=== PATIENT | female | born 1995 | race Caucasian/White ===

== ENCOUNTER 2019-05-04 21:02 | Emergency (ER) | payer OTHER ==
[2019-05-04] MEDS ORDERED: NORMAL SALINE 1000 ML 1,000 ML IV ONE ×2 (21:26→23:42)
[2019-05-04] MEDS ORDERED: ONDANSETRON HCL INJ/PF 4 MG/2 ML SDV IV ONE (21:26)
[2019-05-04] MEDS ORDERED: ACETAMINOPHEN 325 MG TABLET PO ONE (21:27)
[2019-05-04] MEDS ORDERED: KETOROLAC TROMETHAMINE INJ/PF 30 MG/1 ML SDV IV ONE (21:27)
--- NOTE | 2019-05-04 21:28 | ER Document Report ---
ED Medical Screen (RME) - General Chief Complaint: Flu Symptoms Stated Complaint: FEVER/CHILLS/SORE THROAT/NAUSEA Time Seen by Provider: 05/04/19 21:21 Primary Care Provider: COREY NIXON MD [Primary Care Provider] - Follow up as needed TRAVEL OUTSIDE OF THE [place] IN LAST 30 DAYS: No - HPI Notes: 05/04/19 21:27 23-year-old female to the emergency department with complaints of progressively worsening headache, body aches, dizziness, feeling like she is got pass out, fevers that began today. She states that yesterday she got a Gardasil injection and also was put on Fioricet for her hormonal migraines. She states that this morning she was feeling poorly but as the day progressed she got worse. She does admit to a cough. She denies any vomiting but does endorse nausea. She denies any diarrhea. She states that she got home and changed from work and came directly here. She is not taken any Tylenol or Motrin for her symptoms. I performed a brief medical screening exam on the patient determined that the patient needs further evaluation and management by main side provider. I have placed initial orders to help expedite care. - Related Data Allergies/Adverse Reactions: No Known Allergies Allergy (Unverified 03/04/14 11:08) Past Medical History Pulmonary Medical History: Reports: Hx Asthma - Immunizations Hx Diphtheria, Pertussis, Tetanus Vaccination: Yes Physical Exam - Vital signs Vitals: Temp Pulse Resp BP Pulse Ox 102.9 F H 132 H 22 H 132/82 H 100 05/04/19 21:15 05/04/19 21:15 05/04/19 21:15 05/04/19 21:15 05/04/19 21:15 Course - Vital Signs Vital signs: Temp Pulse Resp BP Pulse Ox 102.9 F H 132 H 22 H 132/82 H 100 05/04/19 21:15 05/04/19 21:15 05/04/19 21:15 05/04/19 21:15 05/04/19 21:15 Doctor's Discharge - Discharge Referrals: COREY NIXON MD [Primary Care Provider] - Follow up as needed
[2019-05-04] MEDS ORDERED: KETOROLAC TROMETHAMINE INJ/PF 30 MG/1 ML SDV ONE (22:32)
[2019-05-04] MEDS ORDERED: ONDANSETRON HCL INJ/PF 4 MG/2 ML SDV ONE (22:32)
[2019-05-04] MEDS ORDERED: ACETAMINOPHEN 325 MG TABLET ONE (22:33)
[2019-05-04 23:03] LABS: ABSOLUTE LYMPHOCYTES (AUTO) 0.6 10^3/uL (0.5-4.7); ABSOLUTE MONOCYTES (AUTO) 0.8 10^3/uL (0.1-1.4); ABSOLUTE NEUT (AUTO) 8.4 10^3/uL (1.7-8.2); BASOPHILS % (AUTO) 0.4 % (0-2); HEMATOCRIT 40.7 % (36.0-47.0); HEMOGLOBIN 14.2 g/dL (12.0-15.5); MEAN CORPUSCULAR HGB CONC 34.9 g/dL (32.0-36.0); MEAN CORPUSCULAR VOLUME 89 fl (80-97); MONOCYTES % (AUTO) 8.1 % (3-13); PLATELET COUNT 351 10^3/uL (150-450); RED BLOOD COUNT 4.58 10^6/uL (3.72-5.28); RED CELL DISTRIBUTION WIDTH 13.6 % (11.5-14.0); SEGMENTED NEUTROPHILS % (AUTO) 85.5 % (42-78); TOTAL CELLS COUNTED % (AUTO) 100 %; WHITE BLOOD COUNT 9.8 10^3/uL (4.0-10.5)
[2019-05-04 23:17] LABS: A TYPE INFLUENZA AG POSITIVE (NEGATIVE); B INFLUENZA AG NEGATIVE (NEGATIVE)
[2019-05-04 23:21] LABS: ALBUMIN 4.9 g/dL (3.5-5.0); ALKALINE PHOSPHATASE 50 U/L (38-126); ANION GAP 13 (5-19); ASPARTATE AMINO TRANSFERASE 27 U/L (14-36); BILIRUBIN,DIRECT 0.3 mg/dL (0.0-0.4); BILIRUBIN,TOTAL 0.4 mg/dL (0.2-1.3); BLOOD UREA NITROGEN 17 mg/dL (7-20); CALCIUM 9.8 mg/dL (8.4-10.2); CARBON DIOXIDE 24 mmol/L (22-30); CHLORIDE 101 mmol/L (98-107); GLUCOSE 93 mg/dL (75-110); POTASSIUM 4.6 mmol/L (3.6-5.0); TOTAL PROTEIN 8.5 g/dL (6.3-8.2)
[2019-05-04] MEDS ORDERED: OSELTAMIVIR PHOSPHATE 75 MG CAPSULE PO ONE (23:42)
--- NOTE | 2019-05-04 23:48 | ER Document Report ---
ED Flu Like - General Chief Complaint: Flu Symptoms Stated Complaint: FEVER/CHILLS/SORE THROAT/NAUSEA Time Seen by Provider: 05/04/19 21:21 Primary Care Provider: COREY NIXON MD [Primary Care Provider] - Follow up as needed Mode of Arrival: Ambulatory Information source: Patient, Parent TRAVEL OUTSIDE OF THE [place] IN LAST 30 DAYS: No - HPI Onset: This afternoon Timing/Duration: Sudden Quality of pain: Achy Severity: Moderate Associated symptoms: Body/muscle aches, Chills, Fever, Headache, Nausea, Weakness Notes: No flu immunization this season - Related Data Allergies/Adverse Reactions: No Known Allergies Allergy (Unverified 03/04/14 11:08) Past Medical History - General Information source: Patient, Parent - Social History Smoking Status: Never Smoker Family History: Reviewed & Not Pertinent Patient has suicidal ideation: No Patient has homicidal ideation: No Pulmonary Medical History: Reports: Hx Asthma Neurological Medical History: Reports: Other - Past history of Moore's palsy - Immunizations Hx Diphtheria, Pertussis, Tetanus Vaccination: Yes Review of Systems - Review of Systems Notes: Constitutional: As per HPI. HENT: As per HPI. Eyes: Eyes burn. Cardiovascular: Negative for chest pain. Respiratory: Nonproductive cough. Gastrointestinal: Nausea. No diarrhea.. Genitourinary: Negative for dysuria. Musculoskeletal: Diffuse musculoskeletal pain. Skin: Negative for rash. Neurological: Dull headache. 10 point ROS negative except as marked above and in HPI. Physical Exam - Vital signs Vitals: Temp Pulse Resp BP Pulse Ox 102.9 F H 132 H 22 H 132/82 H 100 05/04/19 21:15 05/04/19 21:15 05/04/19 21:15 05/04/19 21:15 05/04/19 21:15 - Notes Notes: GENERAL: Mildly obese female approximately stated age who appears flushed ill and uncomfortable. SKIN: Good turgor. Flushed. HEAD: Normocephalic atraumatic. EYES: PERRLA. EOMI. Conjunctivae bilaterally injected. EARS: CANALS AND TMS CLEAR. NOSE: CLEAR. MOUTH: Moist mucosa. Good dentition. No stridor or edema. No drooling. Throat: Injected without exudate. NECK: Supple. No masses or thyromegaly. No adenopathy. Carotids 2+ without bruits. No JVD. BACK: Symmetrical without tenderness. CHEST: Dry cough. Respirations unlabored. Breath sounds clear and symmetrical. HEART: Regular rhythm. No murmur gallop or rub. ABDOMEN: Soft nontender without masses, organomegaly or rebound. Bowel sounds normally active. No bruits. GENITALIA: Deferred. EXTREMITIES: No edema. No calf tenderness. Cap refill less than 1.5 seconds. Dorsalis pedis and posterior tibial pulses 3+ and symmetrical. NEUROLOGICAL: GCS 15. Alert and oriented x3. Normal gait. Fluent speech. Cranial nerves II through XII intact. Sensorimotor and cerebellar normal. Normal tone. PSYCHIATRIC: Appropriate affect. Course - Re-evaluation Re-evalutation: 05/04/19 23:47 Positive rapid screen for influenza A. Patient is given oral Tamiflu. Markedly improved after IV normal saline, Toradol and IV Zofran. Stable for outpatient management. - Vital Signs Vital signs: Temp Pulse Resp BP Pulse Ox 102.9 F H 132 H 22 H 132/82 H 100 05/04/19 21:15 05/04/19 21:15 05/04/19 21:15 05/04/19 21:15 05/04/19 21:15 - Laboratory Result Diagrams: 05/04/19 22:40 05/04/19 22:40 Laboratory results interpreted by me: 05/04/19 05/04/19 22:40 22:40 Lymph % (Auto) 6.0 L Absolute Neuts (auto) 8.4 H Seg Neutrophils % 85.5 H Total Protein 8.5 H Discharge - Discharge Clinical Impression: Influenza A Condition: Stable Disposition: HOME, SELF-CARE Instructions: Acetaminophen, Influenza ([phone]) [id number] Additional Instructions: Increase oral fluids. Tylenol or Motrin [id number] as needed. Take prescribed medication as directed. You will be provided a work note for the next 3 days. Follow-up with your primary care provider if unimproved within the next 3 to 4 days. Return here as needed for new or worsening symptoms: Pain that is worsening or unimproved Uncontrolled vomiting High fever or shaking chills Overall worsening Prescriptions: Oseltamivir Phosphate [Tamiflu 75 mg Capsule] 75 mg PO BID 5 Days #10 capsule Forms: Return to Work Referrals: NIXON,SWETANG, MD [Primary Care Provider] - Follow up as needed
[2019-05-05] MEDS ORDERED: ONDANSETRON ODT 4 MG TAB (6 TAB/ER DISP) PO PRN (00:04)
[2019-05-05 00:53] VITALS: BP 106/50
== END 2019-05-05 00:51 | disposition home or self-care (01) ==
LOC: ER 21:02
DX: J10.1 Influenza due to other identified influenza virus with other respiratory manifestations (principal); R50.9 Fever, unspecified; R51 Headache; R11.0 Nausea; R53.1 Weakness; M79.10 Myalgia, unspecified site; E66.9 Obesity, unspecified; J45.909 Unspecified asthma, uncomplicated
CPT/HCPCS: 36415; 85025; 80053; 87804; J1885; J3490; J2405; J7030; 96361; 96374; 96375; 99283